=== PATIENT | female | born 1995 | race Caucasian/White ===

== ENCOUNTER 2016-12-06 11:03 | Emergency (ER) | payer OTHER ==
[2016-12-06 11:29] VITALS: RESP 16; TEMP 98.2
[2016-12-06] MEDS ORDERED: OXYCODONE/APAP 5/325 TAB ONE (13:13)
[2016-12-06] MEDS ORDERED: OXYCODONE/APAP 5/325 TAB PO ONE (13:17)
--- NOTE | 2016-12-06 13:26 | EDPHY ---
H & P Smoking Status: Heavy smoker Time Seen by Provider: 12/06/16 12:52 HPI/ROS: CHIEF COMPLAINT: Left knee pain HISTORY OF PRESENT ILLNESS: This is a 21-year-old female presenting to the emergency department complaining of left knee pain status post injury at work. 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 Taking ibuprofen intermittently without resolved the pain. Denies any other injuries REVIEW OF SYSTEMS: Constitutional: No fever, no chills. Eyes: No discharge. No blurred vision Cardiovascular: No chest pain, no palpitations. Respiratory: No cough, no shortness of breath. Genitourinary: No hematuria. Musculoskeletal: No back pain. Left knee pain Skin: No rashes. Neurological: No headache. (Latanya Blue) Physical Exam: General Appearance: Alert, no distress. Eyes: Pupils equal and round no pallor or injection. Respiratory: There are no retractions, lungs are clear to auscultation. Cardiovascular: Regular rate and rhythm. Gastrointestinal: Abdomen is soft and nontender, no masses, bowel sounds normal. Neurological: No focal deficits Skin: Warm and dry, no rashes. Musculoskeletal: Neck is supple nontender. Left knee patellar tenderness on palpation, negative anterior drawer test, tibial tuberosity tenderness on palpation no obvious deformity no bruising Extremities: symmetrical. Decreased range of motion to left knee most likely due to pain positive CMS intact Psychiatric: Patient is oriented X 3, acting appropriate (Latanya Blue) Constitutional: Initial Vital Signs Temperature (C) 36.8 C 12/06/16 11:26 Heart Rate 81 12/06/16 11:26 Respiratory Rate 16 12/06/16 11:26 Blood Pressure 121/67 H 12/06/16 11:26 O2 Sat (%) 94 12/06/16 11:26 O2 Delivery Mode Room Air Allergies/Adverse Reactions: No Known Allergies Allergy (Unverified 12/06/16 11:28) Home Medications: Medication Instructions Recorded NK [No Known Home Meds] 12/06/16 Medical Decision Making ED Course/Re-evaluation: Discussed ED plan of care: X-ray of left knee, pain medicines given 1410: Discussed no acute findings on x-ray, patient placed in immobilizer. Patient is to follow up with occupational medicine per her employment for further evaluation and release for work. 1420: Discharge home---> stable, discussed discharge instructions (Latanya Blue ) Differential Diagnosis: Other differential diagnosis considered but not limited to patellar fracture, joint effusion, and ligamentous injury (Latanya Blue) Other Provider: The patient wasevaluatedand managed by themidlevel provider. Idiscussed the patient's presentation and course with thephysicianassistantor nurse practitionerand agree with theevaluation. My co-signature indicates that I have reviewed this chart and I agree with the findings and plan of care as documented. I am the secondary supervisingphysician. (Agatha Garcia) - Data Points Medications Given: Discontinued Medications Oxycodone/Acetaminophen (Percocet 5/325) 1 tab PO EDNOW ONE Stop: 12/06/16 13:18 Last Admin: 12/06/16 13:18 Dose: 1 tab Departure - Departure Disposition: Home, Routine, Self-Care Clinical Impression: Knee pain, left Qualifiers: Chronicity: acute Qualified Code(s): M25.562 - Pain in left knee Condition: Good Instructions: Knee Pain (ED), Knee Immobilizer (ED) Additional Instructions: 1. Follow-up with occupational medicine for further treatment and evaluation of any injury. Outpatient MRI recommended to rule out any meniscus or ligamentous tear 2. A use knee immobilizer until further evaluation 3. Ibuprofen 600 mg every 6-8 hours as needed, Tylenol 500 to a 1000 mg as needed 4. Decrease any strenuous activity, prolonged pressure on right lower extremity. Elevate when possible. Ice as needed for any swelling Referrals: NONE *PRIMARY CARE P,. [Primary Care Provider] - As per Instructions [facility],. [Clinic] - As per Instructions [facility] [Clinic] - As per Instructions
[2016-12-06 14:37] VITALS: BP 111/80; PULSE 63; O2SAT 98
== END 2016-12-06 14:37 | disposition home or self-care (01) ==
DX: S89.92XA Unspecified injury of left lower leg, initial encounter (principal); F17.200 Nicotine dependence, unspecified, uncomplicated; W01.198A Fall on same level from slipping, tripping and stumbling with subsequent striking against other object, initial encounter; Y92.69 Other specified industrial and construction area as the place of occurrence of the external cause; Y99.0 Civilian activity done for income or pay; Y93.89 Activity, other specified
CPT/HCPCS: L1830

== ENCOUNTER 2016-12-08 17:56 | Emergency (ER) | payer OTHER ==
[2016-12-08 18:33] VITALS: BP 117/76; PULSE 75; RESP 16; TEMP 97.7; O2SAT 97
--- NOTE | 2016-12-08 19:02 | EDPHY ---
H & P Time Seen by Provider: 12/08/16 18:45 HPI/ROS: CHIEF COMPLAINT: Left wrist injury HISTORY OF PRESENT ILLNESS: 21-year-old [id number] female arrives via private vehicle complaining of acute left wrist pain post mechanical foosh when her crutches caught. Complaining of pain to the distal radius. Occurred shortly prior to arrival. Denies head injury. Denies paresthesia. PHYSICAL EXAM (Prior to examination, patient consented to physical exam, hands were washed and my usual and customary physical exam procedures followed) 1) GENERAL: Well-developed, well-nourished, alert and oriented. Appears to be in no acute distress. 2) HEAD: Normocephalic 3) HEENT: Pupils equal, round, reactive to light bilaterally. 4) LUNGS: Breathing comfortably. 5) MUSCULOSKELETAL: Tender to palpation distal radius Soft compartments. Normal coloration. 6) SKIN: intact 7) VASCULAR: pulses and cap refill present are brisk 8) NEUROLOGIC: Radial, ulnar, median nerve function intact with no deficits appreciated on exam DIFFERENTIAL DIAGNOSIS: in no particular order including but not limited to fracture, sprain, compartment syndrome Procedure: Splint A sugar-tong Orthoglass splint was applied by ER power tool repair technician. After application of the splint I returned and re-examined the patient. The splint was adequately immobilizing the joint and distal to the splint the patient's circulation and sensation were intact. Patient shows no signs of compartment syndrome. Was given orthopedic precautions. Smoking Status: Heavy smoker Constitutional: Initial Vital Signs Temperature (C) 36.5 C 12/08/16 18:32 Heart Rate 75 12/08/16 18:32 Respiratory Rate 16 12/08/16 18:32 Blood Pressure 117/76 12/08/16 18:32 O2 Sat (%) 97 12/08/16 18:32 O2 Delivery Mode Room Air Allergies/Adverse Reactions: No Known Allergies Allergy (Unverified 12/06/16 11:28) Home Medications: Medication Instructions Recorded Hydrocodone/APAP 5/325 [[place] 1 tab PO Q6 PRN #10 tab 12/08/16 5/325 (RX)] Lexapro 12/08/16 MDM/Departure - MDM Imaging Results: Imaging Impressions Wrist X-Ray 12/08/16 18:33 Impression: Suspect nondisplaced distal left radial metaphyseal fracture, with cortical disruption along the ulnar margin and linear longitudinal lucency extending through the distal left radial metaphysis. The images reviewed by myself - Depart Disposition: Home, Routine, Self-Care Clinical Impression: Fracture of left distal radius Qualifiers: Encounter type: initial encounter Fracture type: closed Fracture morphology: other extra-articular Qualified Code(s): S52.552A - Other extraarticular fracture of lower end of left radius, initial encounter for closed fracture Condition: Good Instructions: Wrist Fracture in Adults (ED) Additional Instructions: Return to the ER immediately if you experience discoloration, have worsening pain, numbness, tingling, or any other symptoms that concern you. If you received x-rays in the emergency department today, be advised, that ligamentous , tendon, muscular, and other non-bony injury cannot be fully ruled out. Try to keep your affected extremity elevated above the level of your chest, and keep cold packs on the affected area, for the next 48 hours. Prescriptions: Hydrocodone/APAP 5/325 [[place] 5/325 (RX)] 1 tab PO Q6 PRN #10 tab PRN Reason: Pain, Severe Referrals: Roldan Serrano MD [Medical Doctor] - 2-3 days, call for appt.
== END 2016-12-08 19:33 | disposition home or self-care (01) ==
DX: S52.552A Other extraarticular fracture of lower end of left radius, initial encounter for closed fracture (principal); F17.200 Nicotine dependence, unspecified, uncomplicated; X58.XXXA Exposure to other specified factors, initial encounter
CPT/HCPCS: A4565